=== PATIENT | female | born 1940 | race Caucasian/White ===

== ENCOUNTER 2016-07-04 11:55 | Outpatient (CLI) ==
[2016-03-16 14:14] VITALS: BMI 28.3
[2016-07-04 12:45] LABS: CALCIUM 9.4 mg/dL (8.2-10.2); MAGNESIUM 2.3 mg/dL (1.7-2.2); PHOSPHORUS 3.5 mg/dL (2.8-4.1)
== END 2016-07-04 11:56 | disposition home or self-care (01) ==
LOC: LAB 11:55
PROVIDERS: ATTEND Physician Assistant Medical
DX: M81.0 Age-related osteoporosis without current pathological fracture (principal)
CPT/HCPCS: 36415; 82306; 82310; 83735; 84100

== ENCOUNTER 2017-01-06 09:59 | Outpatient (CLI) ==
[2016-03-16 14:14] VITALS: BMI 28.3
--- NOTE | 2017-01-06 10:52 | DI ---
EXAM: LEFT KNEE. HISTORY: Acute knee pain FINDINGS: Left knee three-view. Bone density appears slightly decreased. There may be mild osteoa rthritis in the anterior compartment. No joint effusion or fracture is identified. Findings appear similar to that seen on prior study of the leg on 08/18/2015. IMPRESSION: No acute findings radiographically. Osteoarthritis of the anterior compartment.
== END 2017-01-06 10:00 | disposition home or self-care (01) ==
LOC: RAD 09:59
PROVIDERS: ATTEND Family Medicine
DX: M25.562 Pain in left knee (principal)

== ENCOUNTER 2017-01-17 15:46 | Outpatient (CLI) ==
[2016-03-16 14:14] VITALS: BMI 28.3
[2017-01-17 16:40] LABS: CALCIUM 9.7 mg/dL (8.2-10.2); MAGNESIUM 2.3 mg/dL (1.7-2.2); PHOSPHORUS 3.8 mg/dL (2.8-4.1)
== END 2017-01-17 15:47 | disposition home or self-care (01) ==
LOC: LAB 15:46
PROVIDERS: ATTEND Nurse Practitioner Family
DX: M81.0 Age-related osteoporosis without current pathological fracture (principal)
CPT/HCPCS: 36415; 82306; 82310; 83735; 84100

== ENCOUNTER 2017-04-20 18:30 | Emergency (ER) ==
[2017-04-20 18:31] VITALS: BMI 28.3
[2017-04-20 18:38] VITALS: BP 160/68; TEMP 102.5
[2017-04-20] MEDS ORDERED: SODIUM CHLORIDE 1,000 ML IV STA (18:42)
[2017-04-20] MEDS ORDERED: VANCOMYCIN 1 GM in SODIUM CHLORIDE 250 ML IV STA (18:42)
--- NOTE | 2017-04-20 18:50 | ED.PDOC ---
General ED Provider: Dr. HOSSEIN HODGES-ER Chief Complaint: Fever Stated Complaint: she had hip replacement last week now with temp 102 with erythema over left hip and thigh Time Seen by Physician: 18:49 Mode of Arrival: Ambulance Information Source: Patient, Family Exam Limitations: No limitations Primary Care Provider: HOSSEIN HODGES Nursing and Triage Documentation Reviewed and Agree: Yes Musculoskeletal Complaint Exam - Hip/Pelvis Complaint/Exam Location of Pain: Reports: Left, Hip Mechanism of Injury: Reports: No known trauma Onset/Duration: 2 days Symptoms Are: Still present Initial Severity: Mild Current Severity: Mild Location: Reports: Discrete (left hip) Character: Reports: Dull, Aching Aggravating: Reports: Movement, Weight bearing Alleviating: Reports: None Associated Signs and Symptoms: Reports: Redness, Fever. Denies: Swelling, Bruising, Weakness, Dizziness, Syncope, Abdominal pain, Knee pain Able to Bear Weight: Yes Related Surgical History: Reports: Left Hip ORIF Hip/Pelvis Findings: Present: Erythema, Warmth Tenderness: Present: Left Range of Motion Limited In: Present: Flexion, Extension NV Bundle Intact Distal to Injury: Yes Differential Diagnoses: Infection Review of Systems - Review Of Systems Constitutional: Reports: Chills, Fever, Weakness, Loss of appetite Eyes: Reports: No symptoms Ears, Nose, Mouth, Throat: Reports: No symptoms Respiratory: Reports: No symptoms Cardiac: Reports: No symptoms GI: Reports: No symptoms : Reports: No symptoms Musculoskeletal: Reports: Joint pain, Joint swelling, Muscle pain, Muscle stiffness Skin: Reports: Rash Neurological: Reports: No symptoms Endocrine: Reports: No symptoms Hematologic/Lymphatic: Reports: No symptoms All Other Systems: Reviewed and Negative Past Medical History - Past Medical History Previously Healthy: Yes Endocrine: Reports: None Cardiovascular: Reports: Hypertension Respiratory: Reports: None Hematological: Reports: None Gastrointestinal: Reports: None Genitourinary: Reports: None Neuro/Psych: Reports: None Musculoskeletal: Reports: None Cancer: Reports: None Last Menstrual Period: none - Surgical History General Surgical History: Reports: None - Family History Family History: Reports: None - Social History Smoking Status: Never smoker Hx Substance Use: No Alcohol Screening: None Physical Exam - Physical Exam Appearance: Well-appearing, No pain distress, Well-nourished Pain Distress: Mild Eyes: CARLI, EOMI, Conjunctiva clear ENT: Ears normal, Nose normal, Oropharynx normal Neck: Supple Respiratory: Airway patent, Breath sounds clear, Breath sounds equal, Respirations nonlabored Cardiovascular: RRR, Pulses normal, No rub, No murmur GI/: Soft, Nontender, No masses, Bowel sounds normal, No Organomegaly Musculoskeletal: Limited ROM Skin: Warm, Dry, Normal color Neurological: Sensation intact, Motor intact, Reflexes intact, Cranial nerves intact, Alert, Oriented Psychiatric: Affect appropriate, Mood appropriate Physician Notification - Case Discussed Physician Notified: Kris at 7:10 pm Time of Notification: 19:24 Critical Care Note - Critical Care Note Total Time (mins): 0 Course - Course Hematology/Chemistry: 04/20/17 18:53 04/20/17 18:53 Orders, Labs, Meds: Lab Review 04/20/17 04/20/17 04/20/17 18:53 18:53 18:53 WBC 17.66 H RBC 3.51 L Hgb 9.5 L Hct 28.2 L MCV 80.3 L MCH 27.1 MCHC 33.7 RDW Coeff of Supriya 14.8 Plt Count 250 Immature Gran % (Auto) 1.3 Neut % (Auto) 85.9 Lymph % (Auto) 5.8 L [place] % (Auto) 6.5 Eos % (Auto) 0.2 Baso % (Auto) 0.3 Immature Gran # (Auto) 0.2 Neut # 15.2 H Lymph # 1.0 [place] # 1.2 Eos # 0.0 Baso # 0.1 Sodium 138 Potassium 3.4 L Chloride 109 H Carbon Dioxide 17 L Anion Gap 15.4 BUN 11 Creatinine 0.59 L Estimated GFR (MDRD) 98.00 BUN/Creatinine Ratio 18.64 Glucose 128 H Lactic Acid 6.3 Calcium 8.2 Total Bilirubin 0.83 AST 25 ALT 8 L Alkaline Phosphatase 102 Total Protein 5.9 Albumin 2.0 L Globulin 3.9 Albumin/Globulin Ratio 0.51 Orders Category Date Time Status TRANSFER TO OUTSIDE FACILITY .TO [facility] ( CARE 04/20/17 18:52 Active SUYAPA EDGAR) WRITE TRANSFER/SBAR NOTE ONCE CARE 04/20/17 18:52 Active DISCHARGE ASSESSMENT ONCE DISCHARGE 04/20/17 18:52 Active WRITE DISCHARGE NOTE ONCE DISCHARGE 04/20/17 18:52 Active ED IV/MEDIPORT/POWERPORT .ONCE EMERGENCY 04/20/17 18:42 Active BLOOD CULTURE (ED ONLY) Stat LAB 04/20/17 18:53 Received CBC W/ AUTO DIFF Stat LAB 04/20/17 18:53 Completed COMPREHENSIVE METABOLIC PANEL Stat LAB 04/20/17 18:53 Completed ESR Stat LAB 04/20/17 18:41 Ordered LACTIC ACID Stat LAB 04/20/17 18:53 Completed PROCALCITONIN Stat LAB 04/20/17 18:53 Received 0.9 % Sodium Chloride [Saline Flush] MEDS 04/20/17 18:42 Ordered 1 syr IVF PRN PRN Sodium Chloride 0.9% [Sodium Chloride] 1,000 ml MEDS 04/20/17 18:42 Active IV 100 mls/hr Vancomycin HCl [Vancomycin] 1 gm MEDS 04/20/17 18:42 Active 0.9 % Sodium Chloride [Sodium Chloride] 250 ml IV ONCE Medications Generic Name Dose Route Start Last Admin Trade Name Freq PRN Reason Stop Dose Admin Sodium Chloride 1,000 mls @ 100 mls/hr 04/20/17 18:42 Sodium Chloride IV 04/21/17 04:41 .Q10H STA Vancomycin HCl 1 gm/ Sodium 250 mls @ 250 mls/hr 04/20/17 18:42 Chloride IV 04/20/17 19:41 ONCE STA Sodium Chloride 1 syr 04/20/17 18:42 Saline Flush IVF PRN PRN To flush IV Vital Signs: Temp Pulse Resp BP Pulse Ox 04/20/17 18:31 102.5 F H 122 H 22 160/68 H 93 L Departure - Departure Time of Disposition: 18:51 Disposition: TSF SHORT-TRM HOSP Discharge Problem: Fever Instructions: Fever in Adults (ED) Condition: Stable Pt referred to PMD for follow-up: Yes Allergies/Adverse Reactions: Allergies codeine Adverse Reaction (Verified 04/20/17 18:43) nalbuphine HCl [From Nubain] Adverse Reaction (Verified 04/20/17 18:43) Sulfa (Sulfonamide Antibiotics) Adverse Reaction (Verified 04/20/17 18:43) Home Medications: Ambulatory Orders Amlodipine Besylate [Norvasc] 1 tab PO DAILY 08/02/13 Aspirin [Aspirin EC] 1 tab PO DAILY 08/02/13 Montelukast Sodium [Singulair] 1 tab PO DAILY 08/02/13 Pravastatin Sodium [Pravachol] 1 tab PO DAILY 08/02/13 Valsartan [Diovan] 1 tab PO DAILY 08/02/13 Venlafaxine HCl [Effexor Xr] 1 tab PO DAILY 08/02/13 Antiox#10/Om3/Dha/Epa/Lut/Zeax [I-Caps with Lutein-[place] 3 Sfg] 1 cap PO DAILY 08/04/13 Calcium Carb & Citrate/Vit D3 [Calcium + Vitamin D3 Caplet] 1 each PO DAILY 11/10 Transfer Form Completed: Yes Disposition Discussed With: Patient, Family
[2017-04-20 19:01] LABS: BASOPHILS # (AUTO) 0.1 K/uL (0-0.2); BASOPHILS % (AUTO) 0.3 % (0.0-3.0); EOSINOPHILS % (AUTO) 0.2 % (0.0-7.0); HEMATOCRIT 28.2 % (37.0-47.0); HEMOGLOBIN 9.5 g/dl (12.0-16.0); IMMATURE GRANULOCYTE % (AUTO) 1.3 % (0.0-5.0); LYMPHOCYTES % (AUTO) 5.8 (10.0-50.0); MEAN CORPUSCULAR HEMOGLOBIN 27.1 pg (27.0-31.0); MEAN CORPUSCULAR HGB CONC 33.7 (31.8-35.4); MEAN CORPUSCULAR VOLUME 80.3 fl (81.0-99.0); MONOCYTES # (AUTO) 1.2 K/uL (0.4-2.0); MONOCYTES % (AUTO) 6.5 (0-10); NEUTROPHILS # (AUTO) 15.2 K/ul (2.0-6.9); NEUTROPHILS % (AUTO) 85.9; PLATELET COUNT 250 10^3/uL (140-440); RED BLOOD COUNT 3.51 10^6/ul (4.20-5.40); WHITE BLOOD COUNT 17.66 K/ul (4.6-10.2)
[2017-04-20 19:22] LABS: ALBUMIN/GLOBULIN RATIO 0.51; ANION GAP 15.4; BILIRUBIN,TOTAL 0.83 mg/dL (0.00-1.20); BUN/CREATININE RATIO 18.64; CALCIUM 8.2 mg/dL (8.2-10.2); CREATININE 0.59 mg/dL (0.60-1.30); POTASSIUM 3.4 mmol/L (3.5-5.10); TOTAL PROTEIN 5.9 g/dL (5.8-8.1)
[2017-04-20 19:34] LABS: ERYTHROCYTE SEDIMENTATION RATE 80 mm/hr (0-20); ESR INTERNAL QC INTERNAL QC VALID
== END 2017-04-20 19:40 | disposition short-term general hospital (02) ==
LOC: ED 18:30
DX: R50.9 Fever, unspecified (principal); M25.552 Pain in left hip; R53.1 Weakness; I10 Essential (primary) hypertension; Z98.890 Other specified postprocedural states; Z96.642 Presence of left artificial hip joint; Z79.899 Other long term (current) drug therapy
CPT/HCPCS: 36415; 80053; 83605; 84145; 85025; 85651; 87040; 96365; 99285

== ENCOUNTER 2017-06-12 10:31 | Outpatient (CLI) ==
--- NOTE | 2017-06-12 11:30 | US ---
EXAM: Bilateral lower extremity venous Doppler HISTORY: Concern for DVT with history of prior DVT. COMPARISON: Lower extremity Doppler of the right leg 04/13/2015 TECHNIQUE: Sonographic and Doppler evaluation of the bilateral lower extremity vessels from the comm on femoral through the anterior tibial veins were obtained. Augmentation and compression techniques were also performed. FINDINGS: There is spontaneous Doppler flow seen in the bilateral lower extremity veins from the com mon femoral through the posterior tibial veins. Anterior tibial veins were not visualized. There is normal compression and augmentation throughout the lower extremity veins. Sonographic appearance of the soft tissues are unremarkable. IMPRESSION: No lower extremity thrombus
== END 2017-06-12 10:32 | disposition home or self-care (01) ==
LOC: RAD 10:31
PROVIDERS: ATTEND Family Medicine
DX: Z86.718 Personal history of other venous thrombosis and embolism (principal)

== ENCOUNTER 2017-07-09 12:24 | Outpatient (CLI) | END 2017-07-09 12:25 | disposition home or self-care (01) | LOC: LAB 12:24 | PROVIDERS: ATTEND Nurse Practitioner Family | DX: M81.0 Age-related osteoporosis without current pathological fracture (principal) | CPT/HCPCS: 36415; 82306; 82310; 83735; 84100 ==

== ENCOUNTER 2018-01-16 04:33 | Emergency (ER) ==
[2018-01-16 04:45] VITALS: BP 166/74; TEMP 97.6; BMI 30.6
[2018-01-16] MEDS ORDERED: BENADRYL IM STA (05:03)
[2018-01-16] MEDS ORDERED: DECADRON 4 MG/ML SDV IM STA (05:03)
--- NOTE | 2018-01-16 05:28 | ED.PDOC ---
General ED Provider: Dr. HOSSEIN HODGES-ER Chief Complaint: Allergic Reaction Stated Complaint: my hives have broke out Time Seen by Physician: 04:40 Mode of Arrival: Walk-In Information Source: Patient Exam Limitations: No limitations Primary Care Provider: HOSSEIN HODGES Nursing and Triage Documentation Reviewed and Agree: Yes Does patient meet sepsis criteria?: No System Inflammatory Response Syndrome: Not Applicable Sepsis Protocol: For patient's 13 years and over: Temp is 96.8 and below OR 101 and greater Pulse >90 BPM Resp >20/minute Acutely Altered Mental Status Are patient's symptoms suggestive of a new infection, such as: -Pneumonia -Skin, Soft Tissue -Endocarditis -UTI -Bone, Joint Infection -Implantable Device -Acute Abdominal Infection -Wound Infection -Meningitis -Blood Stream Catheter Infection -Unknown Skin Complaint Exam - Skin Rash/Itching Complaint/Exam Onset/Duration: 2 hrs Symptoms Are: Still present Initial Severity: Mild Current Severity: Moderate Location: chest and back Potential Exposures: Reports: Unknown Aggravating: Reports: None Alleviating: Reports: None Associated Signs and Symptoms: Denies: Difficulty breathing, Fever, Chills Skin Findings: Present: Urticaria Differential Diagnoses: Allergic Reaction, Urticaria Review of Systems - Review Of Systems Constitutional: Reports: No symptoms Eyes: Reports: No symptoms Ears, Nose, Mouth, Throat: Reports: No symptoms Respiratory: Reports: No symptoms Cardiac: Reports: No symptoms GI: Reports: No symptoms : Reports: No symptoms Musculoskeletal: Reports: No symptoms Skin: Reports: Lesions, Rash Neurological: Reports: No symptoms Endocrine: Reports: No symptoms Hematologic/Lymphatic: Reports: No symptoms All Other Systems: Reviewed and Negative Past Medical History - Past Medical History Previously Healthy: Yes Endocrine: Reports: None Cardiovascular: Reports: Hypertension Respiratory: Reports: None Hematological: Reports: None Gastrointestinal: Reports: None Genitourinary: Reports: None Neuro/Psych: Reports: None Musculoskeletal: Reports: None Cancer: Reports: None Last Menstrual Period: PT HAS HAD A HYSTERECTOMY - Surgical History General Surgical History: Reports: None - Family History Family History: Reports: None - Social History Smoking Status: Never smoker Hx Substance Use: No Alcohol Screening: None - Immunizations Tetanus Shot up to Date: (UNKNOWN) Physical Exam - Physical Exam Appearance: Well-appearing, No pain distress, Well-nourished Eyes: CARLI, EOMI, Conjunctiva clear ENT: Ears normal, Nose normal, Oropharynx normal Neck: Supple Respiratory: Airway patent, Breath sounds clear, Breath sounds equal, Respirations nonlabored Cardiovascular: RRR, Pulses normal, No rub, No murmur GI/: Soft, Nontender, No masses, Bowel sounds normal, No Organomegaly Musculoskeletal: Normal strength, ROM intact, No edema, No calf tenderness Skin: Warm, Dry, Normal color Neurological: Sensation intact, Motor intact, Reflexes intact, Cranial nerves intact, Alert, Oriented Psychiatric: Affect appropriate, Mood appropriate Re-Evaluation - Re-Evaluation Time of Re-Evaluation: 05:45 Status: Improved Vital Signs Stable: Yes Pain Level: 0 Appearance: NAD Lungs: Clear Skin: Warm and Dry Neuro: Alert and Oriented X3 CV: RRR Critical Care Note - Critical Care Note Total Time (mins): 0 Course - Course Orders, Labs, Meds: Orders Category Date Time Status Dexamethasone 4 mg/ml Inj [Decadron 4 mg/ml Sdv] MEDS 01/16/18 05:03 Discontinued 8 mg IM ONCE STA Diphenhydramine Inj [Benadryl] MEDS 01/16/18 05:03 Discontinued 50 mg IM ONCE STA Medications Discontinued Medications Generic Name Dose Route Start Last Admin Trade Name Freq PRN Reason Stop Dose Admin Dexamethasone Sodium Phosphate 8 mg 01/16/18 05:03 01/16/18 05:08 Decadron 4 Mg/Ml Sdv IM 01/16/18 05:04 8 mg ONCE STA Administration Diphenhydramine HCl 50 mg 01/16/18 05:03 01/16/18 05:10 Benadryl IM 01/16/18 05:04 50 mg ONCE STA Administration Vital Signs: Temp Pulse Resp BP Pulse Ox 01/16/18 04:34 97.6 F 106 H 20 166/74 H 95 Departure - Departure Time of Disposition: 05:46 Disposition: HOME SELF-CARE Discharge Problem: Urticaria Instructions: Urticaria (ED) Condition: Good Pt referred to PMD for follow-up: Yes IPMP verified?: No Additional Instructions: prednisone 20mg taper-=-----nathaniel 180mg #30---keep me informed Allergies/Adverse Reactions: Allergies codeine Adverse Reaction (Verified 01/16/18 04:42) nalbuphine HCl [From Nubain] Adverse Reaction (Verified 01/16/18 04:42) Sulfa (Sulfonamide Antibiotics) Adverse Reaction (Verified 01/16/18 04:42) Home Medications: Ambulatory Orders Amlodipine Besylate [Norvasc] 1 tab PO DAILY 08/02/13 Aspirin [Aspirin EC] 1 tab PO DAILY 08/02/13 Montelukast Sodium [Singulair] 1 tab PO DAILY 08/02/13 Pravastatin Sodium [Pravachol] 1 tab PO DAILY 08/02/13 Valsartan [Diovan] 1 tab PO DAILY 08/02/13 Venlafaxine HCl [Effexor Xr] 1 tab PO DAILY 08/02/13 Diclofenac Sodium 75 mg PO BID 01/16/18 Pantoprazole Sodium [Protonix] 40 mg PO BEDTIME 01/16/18 Vit A/Vit C/Vit E/Zinc/Copper [Preservision Areds Softgel] 1 each PO BID Disposition Discussed With: Patient, Family
== END 2018-01-16 05:53 | disposition home or self-care (01) ==
LOC: ED 04:33
DX: L50.9 Urticaria, unspecified (principal)
CPT/HCPCS: 96372; 99282

== ENCOUNTER 2018-01-19 15:56 | Outpatient (CLI) | END 2018-01-19 15:57 | disposition home or self-care (01) | LOC: LAB 15:56 | PROVIDERS: ATTEND Nurse Practitioner Family | DX: M81.0 Age-related osteoporosis without current pathological fracture (principal) | CPT/HCPCS: 36415; 82306; 82310; 83735; 84100 ==

== ENCOUNTER 2018-03-16 10:34 | Outpatient (CLI) ==
--- NOTE | 2018-03-16 16:20 | DI ---
Exam: Two views of the chest. Comparison: None available. Reason for exam: Cough. FINDINGS: No pneumothorax, pleural effusion, focal consolidation. The cardiac silhouette is not enl arged. The imaged osseous structures appear diffusely demineralized. Age indeterminate compression deformities are seen in the lower thoracic spine on the lateral view. Operative changes are seen aft er right shoulder arthroplasty. Parenchymal changes are seen suggesting chronic lung disease. Impression: 1. No acute cardiopulmonary process in the setting of suspected chronic lung disease. 2. Age indeterminate compression deformities in the lower thoracic spine with diffuse osseous demine ralization. If clinical concern exists, further evaluation may be performed.
== END 2018-03-16 10:35 | disposition home or self-care (01) ==
LOC: RAD 10:34
PROVIDERS: ATTEND Family Medicine
DX: R05 Cough (principal)

== ENCOUNTER 2018-04-07 15:06 | Outpatient (POV) | END 2018-04-07 17:00 | LOC: OUTPT 15:06 | PROVIDERS: ATTEND Otolaryngology | DX: H91.90 Unspecified hearing loss, unspecified ear (principal) | CPT/HCPCS: 92557; 92567 ==

== ENCOUNTER 2018-04-18 20:47 | Emergency (ER) | payer OTHER ==
[2018-04-18 20:56] VITALS: BP 162/67; TEMP 99.8; BMI 30.4
[2018-04-18] MEDS ORDERED: LIDOCAINE HCL 1% SDV IM STA (21:25)
[2018-04-18] MEDS ORDERED: DECADRON 4 MG/ML SDV IM STA (21:25)
[2018-04-18] MEDS ORDERED: ROCEPHIN IM STA (21:25)
--- NOTE | 2018-04-18 21:28 | ED.PDOC ---
General ED Provider: Dr. HOSSEIN HODGES-ER Chief Complaint: Earache Stated Complaint: my ear is swollen and draining--i saw dr lazo last week but i didnt get the scripts filled Time Seen by Physician: 21:26 Mode of Arrival: Walk-In Information Source: Patient Exam Limitations: No limitations Primary Care Provider: HOSSEIN HODGES Nursing and Triage Documentation Reviewed and Agree: Yes Does patient meet sepsis criteria?: No System Inflammatory Response Syndrome: Not Applicable Sepsis Protocol: For patient's 13 years and over: Temp is 96.8 and below OR 101 and greater Pulse >90 BPM Resp >20/minute Acutely Altered Mental Status Are patient's symptoms suggestive of a new infection, such as: -Pneumonia -Skin, Soft Tissue -Endocarditis -UTI -Bone, Joint Infection -Implantable Device -Acute Abdominal Infection -Wound Infection -Meningitis -Blood Stream Catheter Infection -Unknown EENT Complaint Exam - Ear Complaint/Exam Onset/Duration: last week Symptoms Are: Still present Timing: Constant Initial Severity: Mild Current Severity: Moderate Character: Reports: Dull pain Aggravating: Reports: Tugging on ear Associated Signs and Symptoms: Reports: Ear swelling, Fever. Denies: Ear trauma , Discharge, Hearing loss, Bleeding, Sore throat, Headache, URI symptoms, Foreign body sensation, Rash, Pain to external ear, Pain to external face Vesicles to External Pinna: No Vesicles to Tragus: No External Canal: Erythema, Tenderness, Swelling Differential Diagnoses: Otitis Externa Review of Systems - Review Of Systems Constitutional: Reports: No symptoms Eyes: Reports: No symptoms Ears, Nose, Mouth, Throat: Reports: Ear pain, Ear discharge Respiratory: Reports: No symptoms Cardiac: Reports: No symptoms GI: Reports: No symptoms : Reports: No symptoms Musculoskeletal: Reports: No symptoms Skin: Reports: No symptoms Neurological: Reports: No symptoms Endocrine: Reports: No symptoms Hematologic/Lymphatic: Reports: No symptoms All Other Systems: Reviewed and Negative Past Medical History - Past Medical History Previously Healthy: Yes Endocrine: Reports: None Cardiovascular: Reports: Hypertension Respiratory: Reports: None Hematological: Reports: None Gastrointestinal: Reports: None Genitourinary: Reports: None Neuro/Psych: Reports: None Musculoskeletal: Reports: None Cancer: Reports: None Last Menstrual Period: PT HAS HAD A HYSTERECTOMY - Surgical History General Surgical History: Reports: None - Family History Family History: Reports: None - Social History Smoking Status: Never smoker Hx Substance Use: No Alcohol Screening: None - Immunizations Tetanus Shot up to Date: (UNKNOWN) Physical Exam - Physical Exam Appearance: Well-appearing, No pain distress, Well-nourished Eyes: CARLI, EOMI, Conjunctiva clear ENT: Ears normal, Nose normal, Oropharynx normal Neck: Supple Respiratory: Airway patent, Breath sounds clear, Breath sounds equal, Respirations nonlabored Cardiovascular: RRR, Pulses normal, No rub, No murmur GI/: Soft, Nontender, No masses, Bowel sounds normal, No Organomegaly Musculoskeletal: Normal strength, ROM intact, No edema, No calf tenderness Skin: Warm, Dry, Normal color Neurological: Sensation intact, Motor intact, Reflexes intact, Cranial nerves intact, Alert, Oriented Psychiatric: Affect appropriate, Mood appropriate Critical Care Note - Critical Care Note Total Time (mins): 0 Course - Course Orders, Labs, Meds: Orders Category Date Time Status Ceftriaxone Sodium [Rocephin] MEDS 04/18/18 21:25 Discontinued 1 gm IM ONCE STA Dexamethasone 4 mg/ml Inj [Decadron 4 mg/ml Sdv] MEDS 04/18/18 21:25 Discontinued 4 mg IM ONCE STA Lidocaine HCl/Pf [Lidocaine HCl 1% Sdv] MEDS 04/18/18 21:25 Discontinued 2.1 ml IM ONCE STA Medications Discontinued Medications Generic Name Dose Route Start Last Admin Trade Name Jamariq PRN Reason Stop Dose Admin Ceftriaxone Sodium 1 gm 04/18/18 21:25 Rocephin IM 04/18/18 21:26 ONCE STA Dexamethasone Sodium Phosphate 4 mg 04/18/18 21:25 Decadron 4 Mg/Ml Sdv IM 04/18/18 21:26 ONCE STA Lidocaine HCl 2.1 ml 04/18/18 21:25 Lidocaine Hcl 1% Sdv IM 04/18/18 21:26 ONCE STA Vital Signs: Temp Pulse Resp BP Pulse Ox 04/18/18 20:48 99.8 F H 109 H 20 162/67 H 96 Departure - Departure Time of Disposition: 21:28 Disposition: HOME SELF-CARE Discharge Problem: Otitis externa Qualifiers: Otitis externa type: other infective Chronicity: acute Laterality: right Qualified Code(s): H60.391 - Other infective otitis externa, right ear Instructions: Otitis Externa (ED) Condition: Good Pt referred to PMD for follow-up: No IPMP verified?: No Additional Instructions: get augmentin filled ---see me friday-- Allergies/Adverse Reactions: Allergies codeine Adverse Reaction (Verified 04/18/18 20:56) nalbuphine HCl [From Nubain] Adverse Reaction (Verified 04/18/18 20:56) Sulfa (Sulfonamide Antibiotics) Adverse Reaction (Verified 04/18/18 20:56) Home Medications: Ambulatory Orders Amlodipine Besylate [Norvasc] 1 tab PO DAILY 08/02/13 Aspirin [Aspirin EC] 1 tab PO DAILY 08/02/13 Montelukast Sodium [Singulair] 1 tab PO DAILY 08/02/13 Venlafaxine HCl [Effexor Xr] 1 tab PO DAILY 08/02/13 Diclofenac Sodium 75 mg PO BID 01/16/18 Pantoprazole Sodium [Protonix] 40 mg PO BEDTIME 01/16/18 Vit A/Vit C/Vit E/Zinc/Copper [Preservision Areds Softgel] 1 each PO BID Losartan Potassium [Cozaar] 100 mg PO DAILY 04/07/18 Pravastatin Sodium 80 mg PO DAILY 04/07/18 Disposition Discussed With: Patient, Family
== END 2018-04-18 21:57 | disposition home or self-care (01) ==
LOC: ED 20:47
DX: H60.391 Other infective otitis externa, right ear (principal)
CPT/HCPCS: 96372; 99282

== ENCOUNTER 2018-07-13 13:08 | Outpatient (CLI) | payer OTHER ==
--- NOTE | 2018-07-16 09:25 | HOLTER ---
PATIENT INFORMATION AND COMMENTS Attending Physician: DR. HOSSEIN HODGES Indications: PALPITATIONS __ Patient Medications: ALBUTEROL, AMLODIPINE, DICLOFENAC, COZAAR, ANTIVERT, SINGULAIR, PROTONIX, MIRAPEX, PRAVACHOL, EFFEXOR-XR __ Pre-procedure Summary: Protocol: Standard Heart Rate Started: 07/13/18 1328 Minimum: 55 BPM Weight: 174 LBS Ended: 07/14/18 1328 Maximum: 156 BPM Height: 63" Duration: 24 HOURS Average: 92 BPM _ INTERPRETATIONS/OBSERVATIONS: 1. BASIC RHYTHM: SINUS, RATE 55 BPM TO 150 BPM, AVERAGE 90 BPM 2. RARE PAC'S AND PVC'S 3. FIVE TO SIX SHORT RUNS OF SVT WITH RATE 150 BPM CONSISTING OF 3 TO [address]-T WAVE CHANGES FROM BASELINE 5. ACTIVITY LOG NOT MAINTAINED MTDD
== END 2018-07-13 13:09 | disposition home or self-care (01) ==
LOC: CAR 13:08
PROVIDERS: ATTEND Family Medicine
DX: R00.2 Palpitations (principal)
CPT/HCPCS: 93227

== ENCOUNTER 2018-07-22 11:37 | Outpatient (CLI) | payer OTHER | END 2018-07-22 11:38 | disposition home or self-care (01) | LOC: LAB 11:37 | PROVIDERS: ATTEND Nurse Practitioner Family | DX: M81.0 Age-related osteoporosis without current pathological fracture (principal) | CPT/HCPCS: 36415; 82306; 82310; 83735; 84100 ==

== ENCOUNTER 2018-08-03 07:33 | Day surgery (SDC) | payer OTHER ==
[2018-08-03] MEDS ORDERED: LIDOCAINE 1% 20 ML MDV ID STA (08:02)
[2018-08-03 08:07] VITALS: TEMP 98.4
[2018-08-03] MEDS ORDERED: DIPRIVAN 20 ML VIAL IVP ONE (09:30)
[2018-08-03] MEDS ORDERED: VERSED ONE (09:30)
[2018-08-03] MEDS ORDERED: LIDOCAINE HCL 2% LUER-JET ONE (09:30)
[2018-08-03 10:34] VITALS: BP 132/66
--- NOTE | 2018-08-04 08:29 | OP ---
PROCEDURE: EGD (ESOPHAGOGASTRODUODENOSCOPY) . ENDOSCOPIST: Alexandria SOTOMAYOR M.D. INDICATION: ANEMIA INSTRUMENT: [id number]. MEDICATION: PER ANESTHESIA. PROCEDURE: The patient was positioned for endoscopy. The oropharynx was sprayed with Cetacaine spray and the endoscope was advanced through the bite block into the esophagus and from there advanced to the duodenum. The duodenum was normal. The pylorus was patent. The antrum is normal. Retroflex exam revealed a small hiatal hernia. Grade A esophagitis is noted at the GE junction. The esophagus is otherwise normal. ASSESSMENT: 1. Essentially negative esophagus 2. Hiatal hernia with mild esophagitis PLAN: 1. Repeat as needed. MTDD
--- NOTE | 2018-08-04 08:32 | OP ---
PROCEDURE: COLONOSCOPY OT THE CECUM. ENDOSCOPIST: Alexandria SOTOMAYOR M.D. INDICATION: ANEMIA INSTRUMENT: [id number]. MEDICATION: PER ANESTHESIA. PROCEDURE: The patient was positioned for colonoscopy. The digital rectal exam was negative. The colonoscope was inserted through the anus and advanced to the cecum. The cecum was identified using the ileocecal valve and the appendiceal orifice as landmarks. Careful inspection made of each colonic segments and the scope was withdrawn in a circumferential fashion. The exam was normal throughout. The [place] Bowel Prep Score equal 9. Withdraw time 10 minutes. It should also be noted that retroflex exam revealed minimal hemorrhoids. PLAN: 1. Repeat colonoscopy as needed. CC: Dr. Yohana VALENTINE
== END 2018-08-03 10:32 | disposition home or self-care (01) ==
LOC: SURG 07:33
PROVIDERS: ATTEND Internal Medicine Gastroenterology
DX: D50.9 Iron deficiency anemia, unspecified (principal); K64.9 Unspecified hemorrhoids; K44.9 Diaphragmatic hernia without obstruction or gangrene

== ENCOUNTER 2018-10-10 13:03 | Outpatient (CLI) | END 2018-10-10 13:04 | disposition home or self-care (01) | LOC: LAB 13:03 | PROVIDERS: ATTEND Nurse Practitioner Family | DX: E55.9 Vitamin D deficiency, unspecified (principal); M81.0 Age-related osteoporosis without current pathological fracture | CPT/HCPCS: 36415; 82306; 82310; 83735; 84100 ==